=== PATIENT | female | born 2000 | race Caucasian/White ===

== ENCOUNTER 2020-12-10 22:17 | Emergency (ER) | payer BC, SELFPAY ==
[2020-12-10 22:23] VITALS: BP 120/87; PULSE 89; RESP 20; TEMP 36.6; O2SAT 99
[2020-12-10 23:01] LABS: Add Urine Microscopic? YES; Appearance Urine Cloudy (Clear); Bacteria Urine Trace /hpf; Bilirubin Urine Negative (Negative); Color Urine Yellow (Yellow); Glucose Urine UA Negative (Negative); Ketones Urine 1+ mg/dL (Negative); Leukocyte Esterase Ur 3+ LEU/UL (Negative); Mucus Urine Rare /lpf; Nitrate Urine Positive (Negative); Protein Urine 2+ mg/dL (Negative); RBC Urine 51-75 /hpf (0-2); Urobilinogen Urine Negative mg/dL (<2.0); WBC Clumps Urine Present /HPF; WBC Urine >75 /hpf
[2020-12-10 23:05] LABS: Blood Urine Negative (Negative)
--- NOTE | 2020-12-10 23:07 | ED.FEMALEGU ---
HPI - Female Genitourinary General Chief complaint: Urogenital-Female Stated complaint: dysuria Time Seen by Provider: 12/10/20 22:52 History of Present Illness HPI Narrative: Increasing dysuria and urinary frequency for weeks. More recently developed nausea. She has tried OTC UTI treatments without significant change. No fever, flank pain, vaginal bleeding/discharge. Related Data Allergies Allergy/AdvReac Type Severity Reaction Status Date / Time No Known Allergies Allergy Verified 12/10/20 22:56 Review of Systems Review of Systems: All systems reviewed & are unremarkable except as noted in HPI and below Constitutional: Constitutional: Reports no additional constitutional complaints Cardiovascular: Cardiovascular: Denies chest pain Respiratory: Respiratory: Denies dyspnea Gastrointestinal: Gastrointestinal: Denies abdominal pain, Reports nausea and Denies vomiting Genitourinary: Genitourinary: Denies abnormal vaginal bleeding, Denies hematuria, Reports nocturia, Reports dysuria, Denies flank pain and Denies vaginal discharge Musculoskeletal: Musculoskeletal: Denies back pain Neurologic: Reports system reviewed and no additional complaints, except as documented PMFSH Past Medical History Medical History ADHD Anxiety Social History Social History Smoking status: Never smoker Alcohol intake: never Substance use: never Gender identity (if verbalized by the patient): Female Exam Const: General: healthy appearing, no acute distress and alert Orientation/consciousness: patient oriented x3 HENMT: Head: normal to inspection Cardio: Jugular venous distension: no JVD GI: Inspection: non-distended GI Palp: Yes Soft to palpation and No Tenderness to palpation present (GI) Skin: General skin exam: normal color Neuro: General: patient oriented x3 and moves all extremities Speech: normal speech Psych: Appearance: well kempt Affect: normal affect Course Vital Signs Vital signs: Vital Signs Temperature 36.6 C 12/10/20 22:23 Pulse Rate 89 12/10/20 22:23 Respiratory Rate 20 12/10/20 22:23 Blood Pressure 120/87 12/10/20 22:23 Pulse Oximetry 99 12/10/20 22:23 Temperature 36.6 C 12/10/20 22:23 Pulse Rate 89 12/10/20 22:23 Respiratory Rate 20 12/10/20 22:23 Blood Pressure 120/87 12/10/20 22:23 Pulse Oximetry 99 12/10/20 22:23 MDM - Female Genitourinary MDM Narrative Medical decision making narrative: UA consistent with infection Lab Data Attestation: I reviewed the patient's lab results. Labs: Lab Results 12/10/20 Range/Units 22:40 Urine Color Yellow (Yellow) Urine Appearance Cloudy H (Clear) Urine pH 6.0 (5.0-9.0) Ur Specific Schuyler 1.020 (1.001-1.035) Urine Protein 2+ H (Negative) mg/dL Urine Glucose (UA) Negative (Negative) mg/dL Urine Ketones 1+ H (Negative) mg/dL Ur Blood (Man) Negative (Negative) Urine Nitrate Positive H (Negative) Urine Bilirubin Negative (Negative) Urine Urobilinogen Negative (<2.0) mg/dL Leukocyte Esterase Rfl 3+ H (Negative) NAMAN/UL Urine RBC 51-75 H (0-2) /hpf Urine WBC >75 H /hpf Urine WBC Clumps Present H (None) /HPF Urine Bacteria Trace /hpf Urine Mucus Rare /lpf UCG Bedside Result Negative Reference Range: Negative Discharge Plan Discharge Clinical Impression: Urinary tract infection Patient Disposition: Home, Self-Care Condition: Stable Instructions: Urinary Tract Infection in Women (ED) Prescriptions: New nitrofurantoin monohyd/m-cryst [Macrobid] 100 mg capsule 100 mg PO Q12H 5 Days Qty: 10 RF: 0 phenazopyridine [Pyridium] 200 mg tablet 200 mg PO TID PRN (Reason: pain) Qty: 5 RF: 0 Follow-up/Referrals: Gladis Swift MD [Primary Care Provider] -
[2020-12-10] MEDS: PHENAZOPYRIDINE HCL 100 MG TABLET 200 MG PO (23:46)
[2020-12-10] MEDS: NITROFURANTOIN MONOHYD MACROCR 100 MG CAP PO (23:47)
[2020-12-10 23:50] VITALS: BP 109/78; PULSE 58; RESP 16; O2SAT 100
== END 2020-12-10 23:50 | disposition home or self-care (01) ==
PROVIDERS: Emergency Medicine; Emergency Provider Emergency Medicine; PCP Family Medicine
DX: N39.0 Urinary tract infection, site not specified (principal)
CPT/HCPCS: 81001; 81025; 87077; 87086; 87088; 87186; 99283; A9270

== ENCOUNTER 2022-09-11 18:02 | Emergency (ER) | payer BC, SELFPAY ==
[2022-09-11 18:09] VITALS: BP 127/86; PULSE 66; RESP 16; TEMP 36.7; O2SAT 100
--- NOTE | 2022-09-11 18:43 | ED.GENADULT ---
HPI - General Adult General Chief complaint: Ear Stated complaint: Right Ear Pain Source: patient Mode of arrival: ambulatory Limitations: no limitations History of Present Illness HPI narrative: Patient presents for evaluation of pain in the right ear. Symptom onset 2 days ago. Symptoms worsened yesterday. Denies any drainage from the ear, tinnitus or hearing loss. Denies any fever, chills, sore throat, cough, shortness of breath. She indicates she had an ear infection in the fall of 2021. She informed nursing staff here that she smoke marijuana frequently. She is also concerned about what she believes to be a stye is to both eyes. She states that her eyes are bloodshot and reports bilateral for sensitivity arriving here today. I do not appreciate any conjunctival injection on my exam. Related Data Allergies Allergy/AdvReac Type Severity Reaction Status Date / Time No Known Allergies Allergy Verified 05/30/21 16:09 Review of Systems Review of Systems: CONSTITUTIONAL: Denies fever, chills, or sweats. EYES: Reports redness to both eyes with photosensitivity. Denies visual changes, redness, or discharge. ENT: Reports right-sided otalgia. denies rhinorrhea, congestion, sore throat CARDIOVASCULAR: Denies chest pain, palpitations, or edema. RESPIRATORY: Denies cough or dyspnea. GASTROINTESTINAL: Denies abdominal pain, nausea, vomiting, or diarrhea. GENITOURINARY: Denies dysuria or hematuria. SKIN: Denies rash or itching. MUSCULOSKELETAL: Denies back pain, joint pain, or myalgia. NEUROLOGIC: Denies headache, numbness, dizziness, or weakness. PSYCHIATRIC: Denies anxiety or depression. [facility] Past Medical History Medical History (Updated 09/11/22 @ 18:45 by MARK Obregon, ) ADHD Anxiety Eustachian tube dysfunction Surgical History Surgical History No pertinent past surgical history Family History Family History Mother Family history non-contributory Other Family history of allergic disorder Social History Social History Smoking status: Never smoker Second hand tobacco smoke exposure: No Alcohol intake: never Substance use: current Substance use type: marijuana Gender identity (if verbalized by the patient): Female Exam Narrative: GENERAL: Well-appearing, well-nourished, and in no acute distress. HEAD: Normocephalic, atraumatic. EYES: PERRLA and EOMI. ENT: Nares clear, no rhinorrhea or epistaxis. Mucous membranes moist. Oropharynx without tonsillar hypertrophy exudate or other lesions. Bilateral TMs pearly banegas nonbulging. Trace amount of fluid behind both tympanic membranes NECK: Supple. No adenopathy or masses. No carotid bruits or JVD CHEST: Clear to auscultation. No respiratory distress. No wheezes rales or rhonchi HEART: Regular rate and rhythm. No murmur heard. Normal peripheral pulses. ABDOMEN: Soft, nontender, nondistended, normal active bowel sounds. EXTREMITIES: Normal range of motion. No edema. SKIN: Warm, dry, no rash. NEURO: No focal deficits. Alert and oriented x3. PSYCH: Normal mood and affect. Course Course Emergency Course: This is a 22-year-old female presented for evaluation of right-sided ear pain. There is no evidence of infection on exam. Likely has some eustachian tube dysfunction secondary to marijuana use. Advise she try Flonase and Sudafed. Increase hydration. Follow up primary provider. Go to the ER for worsening symptoms. Patient in agreement with plan care. Level of Care: Express Care Visit Vital Signs Vital signs: Vital Signs Temperature 36.7 C 09/11/22 18:09 Pulse Rate 66 09/11/22 18:09 Respiratory Rate 16 09/11/22 18:09 Blood Pressure 127/86 09/11/22 18:09 Pulse Oximetry 100 09/11/22 18:09 Oxygen Delivery Room Air 09/11/22 18:09
== END 2022-09-11 18:47 | disposition home or self-care (01) ==
PROVIDERS: Emergency Provider Nurse Practitioner; PCP Family Medicine
DX: H69.83 Other specified disorders of Eustachian tube, bilateral (principal); F12.90 Cannabis use, unspecified, uncomplicated
CPT/HCPCS: 99213; G0463